=== PATIENT | female | born 1980 | race American Indian/Alaskan Native ===

== ENCOUNTER 2017-05-10 05:18 | Inpatient (IN) | payer MEDICAID ==
--- NOTE | 2017-05-08 13:29 | History and Physical Report ---
History of Present Illness Date of examination: 05/07/17 Chief complaint: Single intrauterine at 40 weeks and 3 days gestation not in labor, for scheduled repeat section History of present illness: The Patient is a 36 years old female , LMP110/11/2015, EDC 05/07/2017 confirmed by a first trimester sonogram who is today at 40 weeks and 3 days gestation who has been scheduled for an elective repeat section. She has a history of 1 prior section 4 years ago for nonreassuring heart tracing. During her care, the options for a vs an elective repeat C/section were discussed with her. She elected for the and the risks , benefits of was discussed in detail with her. But, she was told that she did not if she did not go into labor spontaneously by her due date, she would be scheduled for an elective repeat section. Past medical history: denies Past surgical history: section 1 Allergies: denies any drug allergies Social History: denies any smoking, alcohol, or drug abuse. She is and lives with her with and child. She is unemployed. 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 History of cervical dysplasia JEREL 1 during this . OB History: 10/21/2012-Primary C/section for NRHFT, FT, male, weight 6 pounds. [facility]. No complications. chart review T&S: B positive, GCT 70, GBS positive, RPR nonreactive, Hepatitis B negative, HIV negative. Quad screen: positive for Down syndrome. Patient was referred to the perinatology group [facility] for further genetic consult. Detailed anatomy scan was normal Pap smear and LGSIL hemoglobin 11.9, hematocrit 36.5 Physical exam: Gen. no acute distress. Vitals: stable. HEENT: normal. CVS: + S1S2. Chest: CTA B/L Breast: deferred. Neuro: AAO x 3. Ext: No edema, no calf tenderness, no Homans sign. Abdomen: soft,nontender, gravid uterus. Perineum: normal. Vaginal exam:cervix closed, long, and posterior, no bleeding. heart tracing 140s beats per minutes, reactive. Contractions none. Preoperative labs: pending Assessment Single intrauterine at 40 weeks and 3 days gestation not in labor. Previous C/section, admitted for elective repeat section. heart tracing reactive. Plan 1. Risks, benefits, and alternatives of the procedure were discussed in detail with the patient which included but not limited to the risk of infection, hemorrhage requiring blood transfusion, injury to the bowel, bladder, blood vessels. The patient expressed understanding of all the above, her questions were answered, she gave informed consent. 2. NPO since after midnight. 3. Will give IV antibiotics before the OR. 4. 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
[2017-05-10] MEDS ORDERED: LACTATED RINGERS 1,000 ML ONE (05:35)
[2017-05-10] MEDS: LACTATED RINGERS 1,000 ML IV SCH ×3 (05:47→13:54)
[2017-05-10 05:59] LABS: Basophils % (Auto) 0.5 % (0.0-1.8); Eosinophils % (Auto) 1.9 % (0.0-4.3); Hematocrit 38.4 % (30.3-42.9); Hemoglobin 13.1 gm/dl (10.1-14.3); Mean Corpuscular HGB Conc 34 % (30-34); Mean Corpuscular Hemoglobin 31 pg (28-32); Mean Corpuscular Volume 92 fl (79-97); Platelet Count 183 K/mm3 (140-440); Red Cell Distribution Width 12.9 % (13.2-15.2); White Blood Count 6.4 K/mm3 (4.5-11.0)
[2017-05-10] MEDS ORDERED: BICITRA PO ONE (06:00)
[2017-05-10] MEDS ORDERED: PEPCID IV ONE (06:54)
[2017-05-10] MEDS ORDERED: REGLAN ONE (06:54)
[2017-05-10] MEDS ORDERED: PITOCin/NS 20 UNIT/1000ML DRIP 20 UNITS/1,000 ML BAG IV SCH ×2 (07:00→10:00)
[2017-05-10] MEDS ORDERED: ANCEF/STERILE WATER 2 GM/20 ML 2 GM/20 ML SYRINGE IV NR (07:00)
--- NOTE | 2017-05-10 07:16 | Anesthesia Consultation ---
Anesthesia Consult and Med Hx Date of service: 05/10/17 - Airway Anesthetic Teeth Evaluation: Good ROM Head & Neck: Adequate Mental/Hyoid Distance: Adequate Mallampati Class: Class II Intubation Access Assessment: Probably Good - Pre-Operative Health Status ASA Pre-Surgery Classification: ASA2 Proposed Anesthetic Plan: Epidural, Sedation, Conscious - Pulmonary Hx Asthma: No COPD: No Hx Pneumonia: No - Cardiovascular System Hx Hypertension: No - Central Nervous System Hx Seizures: No Hx Psychiatric Problems: No - Endocrine Hx Renal Disease: No Hx End Stage Renal Disease: No Hx Hypothyroidism: No Hx Hyperthyroidism: No - Hematic Hx Anemia: No Hx Sickle Cell Disease: No - Other Systems Hx Alcohol Use: No
--- NOTE | 2017-05-10 07:17 | Anesthesia Day of Surgery ---
Anesthesia Day of Surgery - Day of Surgery Patient Examined: Yes Patient H&P Reviewed: Yes Patient is NPO: Yes
[2017-05-10] MEDS ORDERED: MORPHINE ONE (07:29)
[2017-05-10] MEDS ORDERED: WATER FOR IRRIG STERILE IR ONE (07:45)
[2017-05-10] MEDS ORDERED: NACL 0.9% IR ONE (07:45)
[2017-05-10] MEDS ORDERED: ANCEF/STERILE WATER 2 GM/20 ML IV ONE (07:48)
[2017-05-10] MEDS ORDERED: NEO SYNEPHRINE/NS Syringe(OR USE) IV ONE (08:00)
[2017-05-10] MEDS ORDERED: NACL 0.9% 1000 ML 1,000 ML ONE (08:04)
[2017-05-10] MEDS ORDERED: MORPHINE IV PRN (09:08)
[2017-05-10] MEDS ORDERED: ZOFRAN IV PRN (09:08)
[2017-05-10] MEDS ORDERED: NARCAN 0.4 MG/1 ML IV PRN (09:08)
[2017-05-10] MEDS ORDERED: PHENERGAN PR PRN (09:08)
--- NOTE | 2017-05-10 09:17 | Procedure Note ---
OB Delivery Note - Section Postop diagnosis: same section procedure: repeat low transverse, other (LYSIS OF DENSE ADHESIONS OF PERITONEUM FROM UTERUS AND BLADDER)
[2017-05-10] MEDS ORDERED: TUCKS PAD TP PRN (10:00)
[2017-05-10] MEDS ORDERED: TYLENOL PO PRN (10:00)
[2017-05-10] MEDS ORDERED: LANSINOH TP PRN (10:00)
[2017-05-10] MEDS ORDERED: SODIUM CHLORIDE FLUSH SYRINGE 10 ML IV NR ×2 (10:00→12:00)
[2017-05-10] MEDS ORDERED: TORADOL IV PRN (10:00)
[2017-05-10] MEDS ORDERED: BENADRYL IV PRN (12:00)
[2017-05-10] MEDS ORDERED: DILAUDID IV PRN (12:00)
[2017-05-10] MEDS: TORADOL IV PRN (13:44)
[2017-05-10 21:54] LABS: Hematocrit 30.7 % (30.3-42.9); Hemoglobin 10.2 gm/dl (10.1-14.3)
[2017-05-11] MEDS: TORADOL IV PRN (00:54)
--- NOTE | 2017-05-11 10:24 | Progress Note ---
Subjective Date of service: 05/11/17 Interval history: 1st POD after Patient is in the bed, comfortable. Pain is well controlled with pain meds. Ambulated well. No residual neurological deficit. pruritus is not significant. No anesthesia complications Objective - Constitutional Vitals: Vital Signs - 12hr 05/11/17 05/11/17 05/11/17 00:30 04:25 08:06 Temperature 99.5 F 98.7 F 98.7 F Pulse Rate 87 89 76 Respiratory 18 18 20 Rate Blood Pressure 99/54 95/53 100/72 [Right] - Labs CBC & Chem 7: 05/10/17 21:38
[2017-05-11] MEDS: PERCOCET 5/325 PO PRN ×3 (11:10→23:47)
[2017-05-11] MEDS: MOTRIN PO PRN ×2 (18:17→23:46)
--- NOTE | 2017-05-11 19:58 | Operative Report ---
PREOPERATIVE DIAGNOSES: 1. Single intrauterine at 40 weeks and 3 days gestation, not in labor. 2. Previous section. POSTOPERATIVE DIAGNOSES: 1. Single intrauterine at 40 weeks and 3 days gestation, not in labor. 2. Previous section. PROCEDURE: 1. Repeat low transverse section. 2. Lysis of dense omental adhesions from the anterior uterus and bladder. SURGEON: Eliana Peterson M.D. INSIDE SALES CONSULTANT: None. ANESTHESIA: Spinal. COMPLICATIONS: None. ESTIMATED BLOOD LOSS: 800 mL. IV FLUIDS: Ringer's lactate 1500 mL. URINE OUTPUT: 150 mL and clear at the end of the procedure. PROCEDURE IN DETAILS: 1. The risks, benefits and alternatives of the procedure were discussed in detail with the patient, which included but not limited to the risk of infection; hemorrhage requiring blood transfusion; injury to the bowel, bladder and blood vessels. The patient expressed understanding. Her questions were answered and she gave informed consent. 2. The patient was taken to the operating room with an IV fluid infusing Ringer's lactate in the operating room. She was placed in the sitting position and given spinal combined with epidural anesthesia. Then, she was placed in a dorsal supine position with a leftward tilt. A Gonzalez catheter was placed. Venodyne boots were placed. The abdomen was washed and she was prepared and draped in the usual sterile fashion. After confirming adequate spinal and epidural anesthesia, a Pfannenstiel skin incision was made in the lower abdomen about 2 cm above the pubic symphysis at the level of the previous scar. This incision was carried down to the underlying fascia using the Bovie. The fascia was incised bilaterally in a curvilinear fashion using the Bovie. Two straight Ary clamps were used to grasp the upper edge of the fascia from which the underlying rectus abdominis muscle was dissected off using the Bovie. A similar procedure was done with the lower edge of the fascia to dissect the underlying rectus abdominis muscle. The muscle was bluntly from the midline by pulling. The parietal peritoneum was grasped with 2 hemostat clamps and entered sharply using Metzenbaum scissors. A quick survey of the anatomy revealed a gravid uterus, normal fallopian tubes and ovaries bilaterally. The bladder flap was created using Metzenbaum scissors. Then, the Seth O retractor was placed at the incision for proper visualization. Low transverse incision was made in the lower uterine segment using the bandage scissors bilaterally in a curvilinear fashion. The amniotic sac was ruptured. There was copious amount of clear amniotic fluid. The infant was found in an VIOLETTA position. The head was delivered atraumatically. Bulb suction of the mouth and nose was performed. This was followed by the delivery of the shoulders and the rest of the body atraumatically. Delivery time was 8:25 a.m. The was a male, weight 7 pounds 13 ounces, Apgars were 8 at 1 minute and 9 at 5 minutes. The cord was clamped x 2 and cut. The was handed off to the waiting addictions therapist. Cord blood was collected. The placenta was delivered manually. It was complete with a 3-vessel cord. Uterine massage was performed. It was firm. The uterine incision was repaired in a running locked fashion using 0 Vicryl sutures. A second layer of imbrication was placed. The gutters were cleaned of clots and debris using dry lap sponges. Then, the fascia was closed in a running fashion using 0 Vicryl sutures. The skin was closed with rashel. The counts of laps, needles, sponges and instruments were correct x 2. The patient tolerated the procedure well. She was taken to the recovery room in a stable condition. JOB# [id number] BENITA/EMILY DE LEON
[2017-05-12] MEDS: MOTRIN PO PRN ×2 (08:36→12:00)
--- NOTE | 2017-05-12 10:13 | Progress Note ---
Assessment and Plan A: POD #3 Stable P: Follow Routine PostOp Orders D/C Home today RTO in One Week Subjective - Subjective Date of service: 05/12/17 Patient reports: appetite normal, voiding normally, pain well controlled, flatus , ambulating normally [place]: doing well, bottle feeding Objective - Vital Signs Latest vital signs: Vital Signs Temp Pulse Resp BP Pulse Ox 05/12/17 08:35 97.6 F 68 112/57 99 05/12/17 00:00 98.6 F 69 16 107/58 05/11/17 16:27 98.2 F 78 92/54 Intake and Output 05/11/17 05/12/17 05/12/17 22:59 06:59 14:59 Intake Total 240 Balance 240 Intake: Oral 240 Other: Total, Intake Amount 240 # Voids Void 1 1 - Exam Breasts: Present: normal Cardiovascular: Present: Regular rate Lungs: Present: Clear to auscultation, Normal air movement Abdomen: Present: normal appearance, soft, normal bowel sounds Uterus: Present: normal, firm, fundal height at umbilicus Extremities: Present: normal Incision: Present: normal, dry, intact
--- NOTE | 2017-05-12 10:14 | Discharge Summary ---
Providers - Providers Date of Admission: 05/10/17 05:18 Date of discharge: 05/12/17 Attending physician: ARIS GODDARD MD 05/10/17 09:08 Consult to Senior Consumer Insights Consultant [CONS] Routine Reason For Exam: Primary care physician: ARIS GODDARD MD Hospitalization Reason for admission: section Delivery: Procedure: repeat low transverse Episiotomy: none Laceration: none Incision: normal, dry, intact Other procedures: none complications: none Discharge diagnosis: IUP at term delivered baby: male Condition at discharge: Good Disposition: DC-01 TO HOME OR SELFCARE Plan - Provider Discharge Summary Activity: routine, no sex for 6 weeks, no heavy lifting 4 weeks, no strenuous exercise Diet: routine Instructions: routine Additional instructions: [] Smoking cessation referral if applicable(refer to patient education folder for contact #) [] Refer to [facility]'s [facility] Booklet Call your doctor immediately for: * Fever > 100.5 * Heavy vaginal bleeding ( >1 pad per hour) * Severe persistent headache * Shortness of breath * Reddened, hot, painful area to leg or breast * Drainage or odor from incision. * Keep incision clean and dry at all times and follow doctor's instructions regarding bathing/showering - Follow up plan Follow up: ARIS GODDARD MD [Primary Care Provider] - 7 Days
[2017-05-12] MEDS: PERCOCET 5/325 PO PRN (12:05)
--- NOTE | 2017-05-12 14:08 | Physician Progress Note ---
SUBJECTIVE: This patient is a 36-year-old female who is a 2, para 2-0-0-2 who underwent a repeat low transverse section yesterday, 05/10/2017. Postoperatively, she did very well. Today is postoperative day #1. This patient denies any complaints. She has been tolerating regular diet very well. She was able to ambulate without any dizziness, chest pain or palpitations. OBJECTIVE: VITAL SIGNS: Temperature 98.7 degrees Fahrenheit, heart rate 89, respiration 18, blood pressure 95/53. GENERAL: No acute distress. BREASTS: Deferred. RECTAL: Deferred. NEUROLOGICAL: Alert, awake, oriented x 3. CHEST: Clear to auscultation bilaterally. EXTREMITIES: No edema. No calf tenderness or Homans sign. ABDOMEN: Soft with tenderness over the incision site. Incision is clean and dry, no drainage. Uterus is firm. PELVIC: Deferred. LABORATORY DATA: Preoperative hemoglobin 12.1, hematocrit 37; postop 10.2, hematocrit 37.7. ASSESSMENT: The patient is status post repeat low transverse section, postoperative day 1, afebrile. She is currently hemodynamically stable with good urine output. PLAN: 1. The patient is encouraged to ambulate. We will continue pain medications as needed. 2. Continue regular diet. 3. We will see this patient tomorrow. JOB# [id number] BENITA/NTS
[2017-05-12 14:22] VITALS: BP 118/68
--- NOTE | 2017-05-13 02:53 | Physician Progress Note ---
SUBJECTIVE: This patient is a 36-year-old female 2, para 2-0-0-2, who is status post elective repeat section 2 days ago. This morning, she denies any complaints. She has been tolerating regular diet very well. She passed gas. She moved her bowels. She has been ambulating without any complaints. PHYSICAL EXAMINATION: GENERAL: No acute distress. VITAL SIGNS: Blood pressure 112/67, temperature 97.6 degrees Fahrenheit, heart rate 68, and respirations 16. HEENT: Normal. CHEST: Clear to auscultation bilaterally. BREASTS: Deferred. RECTAL: Deferred. ABDOMEN: Soft. Positive incisional tenderness. Her uterus is firm. The incision is clean and dry. Staple lines are intact. PELVIC: Deferred. EXTREMITIES: No edema, no calf tenderness, no Homans sign. LABORATORY DATA: Hemoglobin 10.2, hematocrit 30.7 postop. ASSESSMENT: A 36-year-old female 2, para 2-0-0-2, who is status post repeat low transverse section. Postoperative day #2, she is hemodynamically stable, afebrile. PLAN: 1. The patient is encouraged to continue ambulation. 2. We will continue pain medications as needed. 3. The patient desires to go home tonight. She will be discharged assuming there is no change in her current status. JOB# [id number] BENITA/EMILY
== END 2017-05-12 14:00 | disposition home or self-care (01) | DRG 766 ==
LOC: APU 05:18 → OB 11:36
PROVIDERS: ADMIT Obstetrics & Gynecology; ATTEND Obstetrics & Gynecology
PROC: 10D00Z1 Extraction of Products of Conception, Low, Open Approach (ICD-10-PCS; principal; 2017-05-11)
DX: O34.211 Maternal care for low transverse scar from previous cesarean delivery (principal); Z3A.40 40 weeks gestation of pregnancy; Z37.0 Single live birth; O99.824 Streptococcus B carrier state complicating childbirth
CPT/HCPCS: 36415; 85014; 85018; 85025; 86850; 86900; 86901; 99211; G0463; J0690; J1200; J1885; J2270; J2370; J2405; J2590; J2765; J7030; J7120

== ENCOUNTER 2020-06-02 09:56 | Emergency (ER) | payer SELFPAY ==
[2020-06-02 10:04] VITALS: BP 124/77
--- NOTE | 2020-06-02 10:29 | Emergency Department Report ---
Upper Extremity - [facility] Chief Complaint: Extremity Injury, Upper Stated Complaint: HAND WEAK/FEELING NUMB Time Seen by Provider: 06/02/20 10:24 Upper Extremity: Left Hand, Right Hand Occurred When: >5 Days (3 years) Mechanism: Other (Repetitive motion) Severity: severe Symptoms: Yes Pain with Movement, Yes Swelling, No Deformity, No Limited Range of Movement, No Numbness, No Weakness, No Bruising/Ecchymosis, No Laceration or Abrasion Other History: The patient was evaluated in the emergency department for symptoms described in the history of present illness. He/she was evaluated in the context of the global COVID-19 pandemic, which necessitated consideration that the patient might be at risk for infection with the virus that causes COVID-19. Institutional protocols and algorithms that pertain to the evaluation of patients at risk for COVID-19 are in a state of rapid change based on information released by regulatory bodies including the CDC and federal and state organizations. These policies and algorithms were followed during the patient's care in the emergency department. Please note that these policies, procedures and recommendations changed on a rapid basis. 39-year-old female presents to the emergency room for a 3-day history of bilateral hand swelling that has gotten worse in the last few days. Patient denies any injuries. 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 She is followed by [facility]. She states she has been taking Tylenol without much help. Patient denies any trauma no falls no injuries. ED Review of Systems ROS: Stated complaint: HAND WEAK/FEELING NUMB Other details as noted in HPI ED Past Medical Hx - Past Medical History Hx Hypertension: No Hx Congestive Heart Failure: No Hx Diabetes: No Hx Deep Vein Thrombosis: No Hx Renal Disease: No Hx Sickle Cell Disease: No Hx Seizures: No Hx Asthma: No Hx COPD: No Hx HIV: No - Surgical History Past Surgical History?: No - Social History Smoking Status: Never Smoker Substance Use Type: None - Medications Home Medications: Home Medications Medication Instructions Recorded Confirmed Last Taken Type Vit-Fe Fumar-FA [ 1 tab PO QDAY 05/10/17 05/10/17 05/09/17 History Vitamin] HYDROcodone/APAP 5-325 [[place] 5 - 325 tab PO Q4HR PRN MDD 6 05/12/17 05/12/17 05/12/17 06:00 History 5/325] 5/325 mg Upper Extremity Exam - Exam General: Vital signs noted. No distress. Alert and acting appropriately. Head and Torso: No HEENT Abnormality, No Neck Tenderness, No Chest/Lungs Abnormality, No Abdominal Tenderness, No Back Tenderness Shoulder Exam: Yes Normal Range of Motion in Shoulder, No Shoulder Tenderness, No Clavicle Tenderness, No Shoulder Deformity, No AC Joint Tenderness Arm Exam: No Arm/Humerus Tenderness, No Arm Deformity Elbow: No Elbow Tenderness, No Normal Range of Motion in Elbow, No Elbow Deformity Forearm: No Forearm Tenderness, No Forearm Deformity, No Pain with Pronation, No Pain with Supination Wrist: Yes Wrist Tenderness, Yes Normal ROM in Wrist, No Wrist Deformity, No Snuffbox Tenderness, No Pain with Axial Thumb Compression Hand: Yes Hand Tenderness, Yes Digit Tenderness, No Hand Deformity, No Normal ROM in Digit(s), No Digit(s) Deformity, No Tendon Dysfunction CMS Exam: No Broken Skin, No Normal Distal Pulses, No Normal Capillary Refill, No Normal Distal Sensation ED Course Vital Signs 06/02/20 09:59 Temperature 98.6 F Pulse Rate 89 Respiratory 18 Rate Blood Pressure 124/77 O2 Sat by Pulse 98 Oximetry ED Medical Decision Making - Medical Decision Making 39-year-old female presents to the emergency room for a 3-day history of bilateral hand swelling that has gotten worse in the last few days. Patient denies any injuries. 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 She is followed by [facility]. She states she has been taking Tylenol without much help. Patient denies any trauma no falls no injuries. Recommend discontinue hair braiding as this aggravates your carpal tunnel and swelling of your hands. He can only take Tylenol for pain management. Wear wrist braces for comfort. Follow-up with your [employer] COUNTER PERSON. Critical care attestation.: If time is entered above; I have spent that time in minutes in the direct care of this critically ill patient, excluding procedure time. ED Disposition Clinical Impression: Bilateral carpal tunnel syndrome Disposition: TO HOME OR SELFCARE Is pt being admited?: No Does the pt Need Aspirin: No Condition: Stable Instructions: Carpal Tunnel Syndrome (ED) Additional Instructions: Continue with Tylenol where you are wrist brace and follow-up with your primary care provider. Do not hair braid as this aggravates your carpal tunnel. Referrals: [facility] [Provider Group] - 3-5 Days Forms: Work/School Release Form(ED)
== END 2020-06-02 10:39 | disposition home or self-care (01) ==
LOC: ED 09:56
DX: G56.03 Carpal tunnel syndrome, bilateral upper limbs (principal)
CPT/HCPCS: 29260; 99281

== ENCOUNTER 2020-09-16 08:46 | Inpatient (IN) | payer MEDICAID ==
--- NOTE | 2020-09-13 15:45 | History and Physical Report ---
History of Present Illness Date of examination: 09/13/20 Chief complaint: repeat c/s History of present illness: 40 yo at 39w2d c/b prior c/s x 2, GBS pos UTI, AMA presenting for repeat c/s. Denies labor complaints or PIH symptoms. +FM. 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 Family/Genetic History: none Social history: no significant social history - Obstetrical History : 3 Para: 2 Hx # Term Pregnancies: 2 Number of Living Children: 2 Medications and Allergies Allergies Allergy/AdvReac Type Severity Reaction Status Date / Time No Known Allergies Allergy Verified 05/10/17 05:40 Home Medications Medication Instructions Recorded Confirmed Last Taken Type Vit-Fe Fumar-FA [ 1 tab PO QDAY 05/10/17 05/10/17 05/09/17 History Vitamin] HYDROcodone/APAP 5-325 [[place] 5 - 325 tab PO Q4HR PRN MDD 6 05/12/17 05/12/17 05/12/17 06:00 History 5/325] 5/325 mg Review of Systems All systems: negative (expect HPI) - Physical Exam Abdomen: Positive: normal appearance, normal bowel sounds (gravid) - Obstetrical FHR: category 1 Uterine Contraction Monitor Mode: External Uterine Contraction Pattern: Absent Results All other labs normal. Assessment and Plan - Patient Problems (1) H/O: Status: Acute Plan to address problem: To OR for repeat c/s --Consented in the chart --Questions solicited and answered --Irma tran [facility]
[2020-09-16] MEDS ORDERED: OXYTOCIN DRIP 30 UNITS/500 ML BAG IV SCH ×2 (09:00→14:00)
[2020-09-16] MEDS ORDERED: FAMOTIDINE 20 MG/2 ML INJ IV SCH (09:00)
[2020-09-16] MEDS ORDERED: ceFAZolin/Water 2 GM/20 ML 2 GM/20 ML SYRINGE IV NR (09:00)
[2020-09-16] MEDS ORDERED: BICITRA ORAL LIQD 30ML PO SCH (09:00)
[2020-09-16] MEDS ORDERED: METOCLOPRAMIDE 10 MG/2 ML INJ IV SCH (09:00)
[2020-09-16] MEDS ORDERED: ONDANSETRON 4 MG/2 ML INJ IV PRN ×2 (09:11→13:38)
[2020-09-16] MEDS ORDERED: NALOXONE 0.4 MG/1 ML INJ IV PRN ×2 (09:11→13:38)
[2020-09-16] MEDS ORDERED: HYDROmorphone 1 MG/1 ML INJ IV PRN (09:11)
--- NOTE | 2020-09-16 09:11 | Anesthesia Consultation ---
Anesthesia Consult and Med Hx Date of service: 09/16/20 - Airway Anesthetic Teeth Evaluation: Poor ROM Head & Neck: Adequate Mental/Hyoid Distance: Adequate Mallampati Class: Class II Intubation Access Assessment: Probably Good - Pulmonary Exam CTA: Yes - Cardiac Exam Cardiac Exam: RRR - Pre-Operative Health Status ASA Pre-Surgery Classification: ASA2 Proposed Anesthetic Plan: Spinal - Pulmonary Hx Smoking: No Hx Asthma: No Hx Respiratory Symptoms: No SOB: No COPD: No Home Oxygen Therapy: No Hx Pneumonia: No Hx Sleep Apnea: No - Cardiovascular System Hx Hypertension: No Hx Coronary Artery Disease: No Hx Heart Attack/AMI: No Hx Angina: No Hx Percutaneous Transluminal Coronary Angioplasty (PTCA): No Hx Cardia Arrhythmia: No Hx Pacemaker: No Hx Internal Defibrillator: No Hx Valvular Heart Disease: No Hx Heart Murmur: No Hx Peripheral Vascular Disease: No - Central Nervous System Hx Neuromuscular Disorder: No Hx Seizures: No CVA: No Hx Back Pain: Yes Hx Psychiatric Problems: No - Gastrointestinal Hx Ulcer: No Hx Gastroesophageal Reflux Disease: Yes - Endocrine Hx Renal Disease: No Hx End Stage Renal Disease: No Hx Cirrhosis: No Hx Liver Disease: No Hx Insulin Dependent Diabetes: No Hx Non-Insulin Dependent Diabetes: No Hx Thyroid Disease: No Hx Hypothyroidism: No Hx Hyperthyroidism: No - Hematic Hx Anemia: No Hx Sickle Cell Disease: No - Other Systems Hx Alcohol Use: No Hx Substance Use: No Hx Cancer: No Hx Obesity: No
--- NOTE | 2020-09-16 09:11 | Anesthesia Day of Surgery ---
Anesthesia Day of Surgery - Day of Surgery Patient Examined: Yes Patient H&P Reviewed: Yes Patient is NPO: Yes Beta Blockers: No Cardiac Clearance: No Pulmonary Clearance: No Jese's Test: N/A
[2020-09-16] MEDS: LACTATED RINGERS 1,000 ML IV SCH ×2 (10:00→11:32)
[2020-09-16 10:05] LABS: Basophils % (Auto) 0.3 % (0.0-1.8); Eosinophils # (Auto) 0.1 K/mm3 (0.0-0.4); Eosinophils % (Auto) 1.2 % (0.0-4.3); Hematocrit 34.7 % (30.3-42.9); Hemoglobin 11.5 gm/dl (10.1-14.3); Lymphocytes # (Auto) 1.2 K/mm3 (1.2-5.4); Lymphocytes % (Auto) 20.4 % (13.4-35.0); Mean Corpuscular HGB Conc 33 % (30-34); Mean Corpuscular Volume 95 fl (79-97); Monocytes # (Auto) 0.5 K/mm3 (0.0-0.8); Monocytes % (Auto) 8.5 % (0.0-7.3); Platelet Count 166 K/mm3 (140-440); Red Blood Count 3.67 M/mm3 (3.65-5.03); Red Cell Distribution Width 13.4 % (13.2-15.2)
[2020-09-16] MEDS ORDERED: BUPIVACAINE/PF (0.5%) 5 MG/1 ML 30 ML VIAL INFILTRATI ONE (11:13)
[2020-09-16] MEDS ORDERED: dexAMETHasone 20 MG/5 ML VIAL ONE (11:13)
[2020-09-16] MEDS ORDERED: SODIUM CHLORIDE 0.9% 100 ML ONE (11:13)
[2020-09-16] MEDS ORDERED: ONDANSETRON 4 MG/2 ML INJ ONE (11:13)
[2020-09-16] MEDS ORDERED: BUPIVACAINE /DEX-WATER 0.75% (2 ML) AMPULE INFILTRATI ONE (11:13)
[2020-09-16] MEDS ORDERED: PHENYLEPHRINE/NS 1,000 MCG/10 ML SYRINGE (OR USE) IV ONE ×2 (11:59→12:38)
[2020-09-16] MEDS ORDERED: ceFAZolin/STERILE WATER 2 GM/20 ML SYRINGE IV ONE (12:05)
[2020-09-16] MEDS ORDERED: WATER FOR IRRIG STERILE 1,500 ML BOTTLE IR ONE (12:12)
[2020-09-16] MEDS ORDERED: SODIUM CHLORIDE 0.9% IRR 1,500 ML BOTTLE IR ONE (12:12)
[2020-09-16] MEDS ORDERED: ONDANSETRON 4 MG/2 ML INJ IV ONE (12:15)
[2020-09-16] MEDS ORDERED: KETOROLAC 30 MG/1 ML INJ ONE (13:04)
[2020-09-16] MEDS ORDERED: HYDROCORTISONE 25 MG RECTAL SUPP PR PRN (13:38)
[2020-09-16] MEDS ORDERED: PROMETHAZINE 25 MG RECT SUPP PR PRN (13:38)
[2020-09-16] MEDS ORDERED: MORPHINE 4 MG/1 ML INJ IV PRN (13:38)
[2020-09-16] MEDS ORDERED: WITCH HAZEL/ GLYCERIN PAD TP PRN (13:38)
[2020-09-16] MEDS ORDERED: SIMETHICONE 80 MG CHEW TAB PO PRN (13:38)
[2020-09-16] MEDS ORDERED: ACETAMINOPHEN 325 MG TAB PO PRN (13:38)
[2020-09-16] MEDS ORDERED: MAGNESIUM HYDROXIDE (MOM) ORAL LIQD UDC PO PRN (13:38)
[2020-09-16] MEDS ORDERED: LANOLIN/ZINC/DIMETHICONE (LANSINOH) 7 GM TP PRN (13:38)
[2020-09-16] MEDS ORDERED: SENNOSIDES 8.6 MG TAB PO PRN (13:38)
--- NOTE | 2020-09-16 13:43 | Procedure Note ---
OB Delivery Note - Delivery Date of Delivery: 09/16/20 Surgeon: MARLI NORRSI JR Estimated blood loss: other (600) - Section Preop diagnosis: repeat Postop diagnosis: same section procedure: section, repeat low transverse, other (dense lysis of adhesions) Disposition: PACU Complications: none Narrative: Indication: 40 yo at 39w2d c/b prior c/s x 2, GBS pos UTI, AMA presenting for repeat c/s Findings: Uterus unable to be fully visualized secondary to dense lysis of adhesions, not exteriorized during the procedure. Unable to visualize tubes and ovaries. Dense adhesions noted at the anterior abdominal wall involving the rectus muscle, uterus, and bladder. Clear fluid. No nuchal cord. Delivery female infant at 1237 Height 18.75 inches Weight 3136 g Apgars 8/9 EBL 600 cc IVF cc UOP 200 cc Procedure: Patient was taken to the operating room prepped and draped in the usual sterile fashion. Pfannenstiel skin incision was made and carried down to the underlying fascia. Fascia was incised and the incision was distended bilaterally. Rectus fascia was dissected off the rectus muscle superiorly and inferiorly. Peritoneum was identified and entered. Dense adhesions were noted involving the uterus, the anterior rectus muscle, and the bladder that was noted to be very high and tacked up to the abdominal wall. The bladder was visualized and dissected bluntly off the anterior uterus. The bladder blade was placed. The rectus muscle on the left was transected 3 cm in order to aid in exposure to the uterine hysterotomy site and for delivery of infant. Uterine hysterotomy incision was made and extended bilaterally. The baby was delivered in the typical vertex fashion. Baby was bulb suction at delivery. The cord was cut and clamped and handed off to the team. The placenta was delivered spontaneously. The uterus could not be exteriorized secondary to extensive adhesions. The uterus cleared of all clots and debris. Uterine incision was closed with a 0 Vicryl in a running locked fashion. Good hemostasis was noted with 2 [id number] sutures applied to the uterine incisional base. The urine was noted to be clear. Hemoblast was applied to the incisional base. Good hemostasis noted. The rectus muscles reapproximated with 2-0 Vicryl. Attention was directed towards the rectus fascia which was reapproximated with 0 PDS in a running fashion. The subcutaneous tissue was irrigated and reapproximated with 2-0 Vicryl in a running fashion. Skin was closed with a 4-0 Vicryl in a subcuticular fashion. The procedure was completed and the patient tolerated the procedure well. All instruments and lap counts were correct x2. - A at 1 minute: 8 at 5 minutes: 9 Infant Gender: Female
--- NOTE | 2020-09-16 14:10 | Progress Note ---
Spinal Anesthesia Block - Spinal Anesthesia Block Start Time: 11:41 Stop Time: 11:46 Performed by:: ROSHAN OLIVER Procedure: Patient IDed, H&P reviewed, all questions and concerns were answered, and consent was signed. Timeout was performed at bedside. Patient in sitting position. Sterile prep and drape was performed. [3] ml of 1% lidocaine skin wheal at L[3]- L [4]. Needle introducer advanced. 25 gauge spinal needle advanced. Clear, free flowing CSF. negative blood, negative paresthesia. Spinal dose given. All needles removed. Patient tolerated procedure.
--- NOTE | 2020-09-16 14:11 | Progress Note ---
Subjective Date of service: 09/16/20 Principal diagnosis: Bilateral TAP Block Interval history: Patient consented for TAP block for post surgical pain management. Patient identified, monitors placed, and time out performed. TAP identified bilaterally via ultrasound. Skin prepped bilaterally with [chlorhexidine] and [22g stimuplex] needle advanced to the TAP. [Marcaine 0.22% 35ml] injected under ultrasound guidance on the [left] side. [Marcaine 0.22% 35ml] injected under ultrasound guidance on the [right] side. Negative aspiration every 5mL, No change in heart rate or rhythm. Patient tolerated the procedure well. No apparent complications seen. Objective - Constitutional Vitals: Vital Signs - 12hr 09/16/20 09/16/20 09:32 09:33 Temperature 97.9 F Pulse Rate 100 H Respiratory 20 Rate Blood Pressure 118/61 - Labs CBC & Chem 7: 09/16/20 09:50 Labs: Abnormal lab results 09/16/20 Range/Units 09:50 [place] % (Auto) 8.5 H (0.0-7.3) %
--- NOTE | 2020-09-16 14:12 | Post Anesthesia Evaluation ---
- Post Anesthesia Evaluation Patient Participated: Yes Airway Patent: Yes Stable Respiratory Function: Yes Nausea/Vomiting: No Temp > 96.8F: Yes Pain Manageable: Yes Adequeate Hydration: Yes Anesthesia Complications: No Block Receding Appropriately: Yes Patient on Ventilator: No
[2020-09-16] MEDS: KETOROLAC 30 MG/1 ML INJ IV SCH (17:32)
[2020-09-17] MEDS: KETOROLAC 30 MG/1 ML INJ IV SCH ×4 (00:11→11:34)
[2020-09-17 03:32] LABS: Hematocrit 29.3 % (30.3-42.9); Hemoglobin 9.9 gm/dl (10.1-14.3)
[2020-09-17] MEDS: oxyCODONE /ACETAMINOPHEN 5-325MG TAB PO PRN ×2 (09:01→19:30)
--- NOTE | 2020-09-17 10:24 | Progress Note ---
Assessment and Plan - Patient Problems (1) Status post repeat low transverse section Current Visit: Yes Status: Acute Plan to address problem: Continue routine PP orders Keep dressing clean and dry, remove on POD #2 Anticipate d/c home in 24-48hrs if stable (2) Anemia Current Visit: Yes Status: Acute Qualifiers: Anemia type: other cause Other causes of anemia: acute posthemorrhagic Qualified Code(s): D62 - Acute posthemorrhagic anemia Plan to address problem: Asymptomatic Increase iron rich foods into diet Subjective - Subjective Date of service: 09/17/20 Principal diagnosis: S/P repeat C/S; POD#1 Interval history: See admission H & P; OB operative summary and PP progress notes Patient reports: appetite normal, voiding normally, pain well controlled (with medications), flatus, ambulating normally, no bowel movement [place]: doing well, nursing well Objective - Vital Signs Latest vital signs: Vital Signs Temp Pulse Resp BP BP Pulse Ox 09/17/20 07:43 98.3 F 74 16 90/44 97 09/17/20 04:57 97.7 F 77 18 95/49 99 09/17/20 00:08 98.1 F 72 20 95/44 96 09/16/20 20:04 97.8 F 77 18 104/57 98 09/16/20 16:23 97.5 F L 73 16 96/54 98 09/16/20 15:00 71 14 110/47 98 09/16/20 14:45 74 15 115/67 98 09/16/20 14:30 73 15 107/61 98 09/16/20 14:15 72 15 108/61 98 09/16/20 14:00 72 16 109/62 98 09/16/20 13:55 98.0 F 69 17 111/63 98 09/16/20 13:50 98.0 F 72 17 112/59 98 Intake and Output 09/16/20 09/17/20 09/17/20 23:59 07:59 15:59 Intake Total 240 Balance 240 Intake: Intake, Free Water 240 - Exam Breasts: Present: normal Cardiovascular: Present: Regular rate Abdomen: Present: soft, distention Uterus: Present: firm, fundal height below umbilicus (U-2) Extremities: Present: normal Deep Tendon Reflex Grade: Normal +2 Incision: Present: dressed (no drainage or bleeding noted on drsg) - Labs Labs: Abnormal lab results 09/17/20 Range/Units 01:53 Hgb 9.9 L (10.1-14.3) gm/dl Hct 29.3 L (30.3-42.9) %
[2020-09-17] MEDS ORDERED: KETOROLAC 30 MG/1 ML INJ ONE (11:29)
[2020-09-17] MEDS: IBUPROFEN 800 MG TAB PO PRN (23:56)
[2020-09-18] MEDS: oxyCODONE /ACETAMINOPHEN 5-325MG TAB PO PRN (06:45)
[2020-09-18] MEDS: IBUPROFEN 800 MG TAB PO PRN (08:36)
--- NOTE | 2020-09-18 10:43 | Progress Note ---
Assessment and Plan A: Postop Day 2 Asymptomatic Anemia P: Follow routine postop orders Ferrous Sulfate 325mg PO q day; continue at home Depo 150mg IM x 1 dose prior to discharge Discharge home today Return to clinic in 1 week for incision check Return to clinic in 6 weeks for check Subjective - Subjective Date of service: 09/18/20 Principal diagnosis: S/P repeat C/S; POD#2 Patient reports: appetite normal, voiding normally, pain well controlled (with medications), flatus, ambulating normally : doing well, bottle feeding (and ) Objective - Vital Signs Latest vital signs: Vital Signs Temp Pulse Resp BP Pulse Ox 09/17/20 23:47 98.2 F 76 20 101/58 100 09/17/20 16:26 97.6 F 86 20 101/56 98 09/17/20 12:17 98.1 F 75 20 107/44 100 Intake and Output 09/17/20 09/18/20 09/18/20 22:59 06:59 14:59 Intake Total 240 240 Balance 240 240 Intake: Oral 240 240 Other: Total, Intake Amount 240 240 # Voids Void 1 1 - Exam Breasts: Present: normal Cardiovascular: Present: Regular rate, Normal S1, Normal S2 Lungs: Present: Clear to auscultation, Normal air movement Abdomen: Present: normal appearance, soft, normal bowel sounds Uterus: Present: normal, firm, fundal height below umbilicus Extremities: Present: normal Incision: Present: normal, dry, intact
--- NOTE | 2020-09-18 10:44 | Discharge Summary ---
Providers - Providers Date of Admission: 09/16/20 08:46 Date of discharge: 09/18/20 Attending physician: MARLI NORRIS JR, MD Primary care physician: MARLI NORRIS JR, MD Hospitalization Reason for admission: section Delivery: Procedure: repeat low transverse Incision: normal, dry, intact Other procedures: none complications: none Discharge diagnosis: IUP at term delivered baby: female Condition at discharge: Good Disposition: DC-01 TO HOME OR SELFCARE Plan - Discharge Medications Prescriptions: Ibuprofen [Motrin 800 MG tab] 800 mg PO Q6H PRN #30 tablet PRN Reason: Pain, Mild (1-3) oxyCODONE /ACETAMINOPHEN [Percocet 5/325 mg] 1 tab PO Q6H PRN #30 tablet PRN Reason: Pain, Moderate (4-6) - Provider Discharge Summary Activity: routine, no sex for 6 weeks, no heavy lifting 4 weeks, no strenuous exercise Diet: routine Instructions: routine Additional instructions: [] Smoking cessation referral if applicable(refer to patient education folder for contact #) [] Refer to [facility] Booklet Call your doctor immediately for: * Fever > 100.5 * Heavy vaginal bleeding ( >1 pad per hour) * Severe persistent headache * Shortness of breath * Reddened, hot, painful area to leg or breast * Drainage or odor from incision. * Keep incision clean and dry at all times and follow doctor's instructions regarding bathing/showering - Follow up plan Follow up: MARLI NORRIS JR, MD [Primary Care Provider] - 7 Days
[2020-09-18] MEDS ORDERED: medroxyPROGESTERone ACETATE 150 MG/ML SYRINGE IM NR (11:00)
[2020-09-18] MEDS ORDERED: FERROUS SULFATE 325 MG TAB PO SCH (11:00)
[2020-09-18 12:54] VITALS: BP 100/60
== END 2020-09-18 13:10 | disposition home or self-care (01) | DRG 765 ==
LOC: APU 08:46 → OB 16:07
PROVIDERS: ADMIT Obstetrics & Gynecology; ATTEND Obstetrics & Gynecology
PROC: 10D00Z1 Extraction of Products of Conception, Low, Open Approach (ICD-10-PCS; principal; 2020-09-16)
PROC: 0DNW0ZZ Release Peritoneum, Open Approach (ICD-10-PCS; 2020-09-16)
PROC: 3E0R3BZ Introduction of Anesthetic Agent into Spinal Canal, Percutaneous Approach (ICD-10-PCS; 2020-09-16)
PROC: 3E0T3BZ Introduction of Anesthetic Agent into Peripheral Nerves and Plexi, Percutaneous Approach (ICD-10-PCS; 2020-09-16)
DX: O34.211 Maternal care for low transverse scar from previous cesarean delivery (principal); D62 Acute posthemorrhagic anemia; O99.02 Anemia complicating childbirth; N85.8 Other specified noninflammatory disorders of uterus; Z3A.39 39 weeks gestation of pregnancy; Z37.0 Single live birth; Z20.822 Contact with and (suspected) exposure to COVID-19; O99.62 Diseases of the digestive system complicating childbirth; K66.0 Peritoneal adhesions (postprocedural) (postinfection)
CPT/HCPCS: 36415; 85014; 85018; 85025; 86850; 86900; 86901; G0378; J0690; J1050; J1100; J1885; J2370; J2405; J2765; J3490; J7120; U0003